=== PATIENT | female | born 1960 | race Caucasian/White ===

== ENCOUNTER 2023-05-25 21:00 | Emergency (ER) | payer BC ==
[2023-05-25] MEDS ORDERED: Morphine 4 MG/ML VIAL ONE (22:28)
== END 2023-05-25 23:07 | disposition home or self-care (01) ==
LOC: ERS 21:00
DX: S39.012A Strain of muscle, fascia and tendon of lower back, initial encounter (principal); M54.32 Sciatica, left side; E11.9 Type 2 diabetes mellitus without complications; I10 Essential (primary) hypertension; X58.XXXA Exposure to other specified factors, initial encounter
CPT/HCPCS: 96372; 99283; J2270